=== PATIENT | male | born 1995 | race Caucasian/White ===

== ENCOUNTER 2020-09-20 09:11 | Emergency (ER) | payer OTHER ==
[~2020-09-20] VITALS: Ht 167.6 cm; Wt 83.9 kg
[2020-09-20] MEDS ORDERED: IBUPROFEN 600 MG TABLET ONE (09:29)
[2020-09-20] MEDS ORDERED: IBUPROFEN 600 MG TABLET PO ONE (09:30)
--- NOTE | 2020-09-20 09:32 | NUR ---
BIBS. NOT IN RESP DISTRESS. AMBULATORY. C/O R KNEE PAIN S/P FELL OF HIS SKATE BOARD ON FRIDAY. PAIN IS RATED 7/10. ROM LIMITED D/T PAIN. MD WAS AT THE BEDSIDE FOR EVAL. ORDERS RECEIVED. MEDICATED. AWAITING XRAY
[2020-09-20] MEDS ORDERED: IBUP-1955 PO (10:22)
--- NOTE | 2020-09-20 10:34 | NUR ---
Patient discharged to home in stable condition. Written and verbal after care instructions given. Patient verbalizes understanding of instruction.Pt ambulatory with a steady gait w/ an aide of crutches
[2020-09-20 10:54] VITALS: BP 128/89
== END 2020-09-20 10:56 | disposition home or self-care (01) ==
LOC: ER 09:21
DX: S89.81XA Other specified injuries of right lower leg, initial encounter (principal); V00.131A Fall from skateboard, initial encounter; Y93.51 Activity, roller skating (inline) and skateboarding; Y92.331 Roller skating rink as the place of occurrence of the external cause; Y99.8 Other external cause status
CPT/HCPCS: 73564-TC